=== PATIENT | female | born 1940 | race Caucasian/White ===

== ENCOUNTER 2021-02-21 19:21 | Inpatient (IN) | payer MEDICARE, OTHER ==
[~2021-02-21] VITALS: Ht 165.1 cm; Wt 61.9 kg
--- NOTE | 2021-02-21 19:42 | NUR ---
pt MATT from [place], pt was at home and had difficulty waking pt up, called EMS and EMS gave pt 0.4 of narcan and pt woke up but then went back to sleep, pt given 1mg of narcan at 1448 and was has been alert and oriented since, pt clancy history of TIA and fibromyalgia, at [place] pts troponin increased from 0.09 to 0.29 EKG showed RBBB, pt has no history of cardiac issues, pt not complaining of SOB or chest pain, pt was given 2g of ceftriaxone and 500mg of zithromax because pt was beleived to be septic but that was ruled out at [place]
[2021-02-21 20:10] LABS: BASOPHILS % (AUTO) 1 % (0-1); EOSINOPHILS % (AUTO) 2 % (1-7); LYMPHOCYTES % (AUTO) 19 % (22-44); MEAN CORPUSCULAR HEMOGLOBIN 30.1 pg (27.0-34.8); MEAN CORPUSCULAR HGB CONC 32.5 g/dL (32.4-35.8); MEAN PLATELET VOLUME 8.8 fL (7.4-10.4); MONOCYTES % (AUTO) 10 % (2-9); NEUTROPHILS % (AUTO) 69 % (42-75); PLATELET COUNT 229 x10^3/uL (130-400); RED CELL DISTRIBUTION WIDTH 13.4 % (9.6-15.2)
[2021-02-21 20:20] LABS: ALBUMIN 2.8 g/dL (3.4-5.0); ANION GAP 3 mmol/L (5-15); CALCIUM 8.1 mg/dL (8.5-10.1); CHLORIDE 115 mmol/L (98-107)
[2021-02-21 20:26] LABS: CREATININE 0.66 mg/dL (0.55-1.02)
[2021-02-21 20:29] LABS: TROPONIN I 0.348 ng/mL (0.000-0.045)
--- NOTE | 2021-02-21 20:59 | NUR ---
pt asleep in bed, VSS, all needs in reach, call lihgt in reach, NAD
[2021-02-21] MEDS ORDERED: ACETAMINOPHEN 325 MG TABLET PO PRN (22:30)
[2021-02-21] MEDS ORDERED: ASA/APAP/ CAFFEINE TABLET PO PRN (22:30)
[2021-02-21] MEDS ORDERED: GABAPENTIN 300 MG CAPSULE PO PRN (22:30)
[2021-02-21] MEDS ORDERED: TEMAZEPAM 15 MG CAPSULE PO PRN (22:30)
[2021-02-21] MEDS ORDERED: ENALAPRILAT 1.25 MG/ML, 2ML IVPush PRN (22:30)
[2021-02-21] MEDS ORDERED: GUAIFENESIN/DM 200-20MG, 10ML UDC PO PRN (22:30)
[2021-02-21] MEDS ORDERED: DOCUSATE 100 MG CAPSULE PO PRN (22:30)
[2021-02-21] MEDS ORDERED: ONDANSETRON 2MG/ML, 2ML IVPush PRN (22:30)
[2021-02-21] MEDS: SODIUM CHLORIDE 0.9% 1,000 ML IV SCH (23:19)
[2021-02-21 23:26] VITALS: BP 122/77
[2021-02-21] MEDS: ENOXAPARIN 40 MG/0.4 ML SQ SCH (23:48)
[2021-02-22 05:40] LABS: ANION GAP 5 mmol/L (5-15); CALCIUM 8.3 mg/dL (8.5-10.1); CHLORIDE 113 mmol/L (98-107); CREATININE 0.47 mg/dL (0.55-1.02)
[2021-02-22 05:45] LABS: TROPONIN I 0.215 ng/mL (0.000-0.045)
[2021-02-22 06:04] LABS: BASOPHILS % (AUTO) 1 % (0-1); EOSINOPHILS % (AUTO) 5 % (1-7); LYMPHOCYTES % (AUTO) 20 % (22-44); MEAN CORPUSCULAR HEMOGLOBIN 30.3 pg (27.0-34.8); MEAN CORPUSCULAR HGB CONC 32.9 g/dL (32.4-35.8); MEAN PLATELET VOLUME 9.3 fL (7.4-10.4); MONOCYTES % (AUTO) 14 % (2-9); NEUTROPHILS % (AUTO) 61 % (42-75); PLATELET COUNT 200 x10^3/uL (130-400); RED BLOOD COUNT 4.18 x10^6/uL (3.82-5.3); RED CELL DISTRIBUTION WIDTH 13.2 % (9.6-15.2)
[2021-02-22 07:40] VITALS: BP 157/82
[2021-02-22] MEDS: DULOXETINE 30 MG CAPSULE.DR PO SCH (08:32)
[2021-02-22] MEDS: SODIUM CHLORIDE 0.9% 1,000 ML IV SCH ×2 (08:32→18:11)
[2021-02-22] MEDS: CEFTRIAXONE 2 GM in DEXTROSE 5% 50 ML IVPB SCH (08:56)
[2021-02-22] MEDS: AZITHROMYCIN 500 MG in SODIUM CHLORIDE 0.9% 250 ML IV SCH (10:35)
[2021-02-22 13:25] VITALS: BP 148/84
[2021-02-22 17:02] LABS: MICROSCOPIC NOT IND
[2021-02-22 19:26] VITALS: BP 153/77
[2021-02-22] MEDS ORDERED: ATORVASTATIN 10 MG TABLET PO SCH (21:00)
[2021-02-22] MEDS: ENOXAPARIN 40 MG/0.4 ML SQ SCH (23:38)
[2021-02-23 01:54] VITALS: BP 148/82
[2021-02-23] MEDS: SODIUM CHLORIDE 0.9% 1,000 ML IV SCH (06:40)
[2021-02-23 08:03] VITALS: BP 154/90
[2021-02-23 08:20] LABS: MEAN PLATELET VOLUME 8.7 fL (7.4-10.4); PLATELET COUNT 268 x10^3/uL (130-400); RED CELL DISTRIBUTION WIDTH 12.7 % (9.6-15.2)
[2021-02-23 08:31] LABS: ALBUMIN 3.2 g/dL (3.4-5.0); ANION GAP 10 mmol/L (5-15); CALCIUM 8.8 mg/dL (8.5-10.1); CHLORIDE 107 mmol/L (98-107)
[2021-02-23 08:34] LABS: ALANINE AMINOTRANSFERASE 28 U/L (12-78); ALKALINE PHOSPHATASE 75 U/L (45-117); BILIRUBIN,TOTAL 0.5 mg/dL (0.2-1.0); CREATININE 0.47 mg/dL (0.55-1.02); TOTAL PROTEIN 6.6 g/dL (6.4-8.2)
[2021-02-23] MEDS ORDERED: REGADENOSON 0.4 MG/5 ML SYRINGE ONE (08:50)
[2021-02-23 08:54] LABS: BAND#(MANUAL) 0.08 x10^3/uL; BANDS%(MANUAL) 1 % (0-7); EOS#(MANUAL) 0.15 x10^3/uL (0.0-0.4); EOS% (MANUAL) 2 % (1-7); LYMPHS% (MANUAL) 16 % (22-44); MONOS#(MANUAL) 0.45 x10^3/uL (0.3-2.7); MONOS% (MANUAL) 6 % (2-9); SEG#(MANUAL) 5.63 x10^3/uL (1.8-6.8); SEGS% (MANUAL) 75 % (42-75)
[2021-02-23 08:55] LABS: <PLATELET ESTIMATE> ADEQUATE; <PLT MORPHOLOGY> NORMAL PLT MORPH; <RBC MORPHOLOGY> NORMAL
[2021-02-23] MEDS: CEFTRIAXONE 2 GM in DEXTROSE 5% 50 ML IVPB SCH (10:41)
[2021-02-23] MEDS: DULOXETINE 30 MG CAPSULE.DR PO SCH (10:41)
[2021-02-23] MEDS: AZITHROMYCIN 500 MG in SODIUM CHLORIDE 0.9% 250 ML IV SCH (11:18)
[2021-02-23 13:18] VITALS: BP 160/93
[2021-02-23 15:17] VITALS: BP 167/96
[2021-02-23] MEDS ORDERED: METO25TA91 PO (15:39)
[2021-02-23] MEDS ORDERED: ATOR10TA9 PO (15:39)
[2021-02-23] MEDS ORDERED: LISI5TAB7 PO (15:39)
[2021-02-23] MEDS ORDERED: ASPI-963 PO (15:56)
[2021-02-23] MEDS ORDERED: CLOP75TA52 PO (15:57)
[2021-02-23] MEDS ORDERED: LISINOPRIL 5 MG TABLET PO SCH (16:00)
[2021-02-23] MEDS ORDERED: METOPROLOL SUCCINATE 25 MG TAB.ER.24H PO SCH (16:00)
[2021-02-23 16:34] VITALS: BP 142/83
== END 2021-02-23 18:22 | disposition home or self-care (01) | DRG 917 ==
LOC: ED 22:00 → EDIP 23:03 → 5SO 23:14
PROVIDERS: ADMIT Internal Medicine; ATTEND Hospitalist
PROC: 0T9B70Z Drainage of Bladder with Drainage Device, Via Natural or Artificial Opening (ICD-10-PCS; principal; 2021-02-22)
DX: T40.2X1A Poisoning by other opioids, accidental (unintentional), initial encounter (principal); I21.A1 Myocardial infarction type 2; G92 Toxic encephalopathy; Z66 Do not resuscitate; R33.9 Retention of urine, unspecified; E87.8 Other disorders of electrolyte and fluid balance, not elsewhere classified; G47.00 Insomnia, unspecified; I10 Essential (primary) hypertension; M79.7 Fibromyalgia; Z79.891 Long term (current) use of opiate analgesic; Z82.3 Family history of stroke; Z82.49 Family history of ischemic heart disease and other diseases of the circulatory system; Z90.710 Acquired absence of both cervix and uterus
CPT/HCPCS: 36415; 78452; 80048; 80053; 81003; 82040; 83735; 84100; 84484; 85025; 93005; 93017; 93306; 96374; G0378; J0456; J0696; J1650; J2405; J2785; A9502; J7030; J7050; J7512